=== PATIENT | female | born 1995 ===

== ENCOUNTER 2021-01-07 17:08 | Emergency (ER) | payer SELFPAY ==
[2021-01-07 17:54] VITALS: BP 144/63
--- NOTE | 2021-01-07 17:56 | Emergency Department Report ---
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 Patient went to a primary care clinic and was diagnosed with stomatitis and given Keflex and ibuprofen and she had basic labs performed duri ng a visit for a physical. She received her labs back and was advised that her potassium was 8.8. She presents emergency room to have repeat labs drawn. She has no symptoms at all currently. She denies any chest pain, shortness of breath, palpitations, numbness, weakness, muscle cramps. Based on her lab work drawn from her primary care visit, her renal function was normal at that time. She denies any past medical history or allergies to medications. - Related Data Allergies Allergy/AdvReac Type Severity Reaction Status Date / Time No Known Allergies Allergy Unverified 01/07/21 17:30 ED Review of Systems ROS: Stated complaint: ABNORMAL LABS Other details as noted in HPI Comment: All other systems reviewed and negative ED Past Medical Hx - Past Medical History Previous Medical History?: No - Surgical History Past Surgical History?: No - Social History Smoking Status: Never Smoker Substance Use Type: None ED Physical Exam - General Limitations: No Limitations General appearance: alert, in no apparent distress - Head Head exam: Present: atraumatic, normocephalic - Eye Eye exam: Present: normal appearance - ENT ENT exam: Present: normal orophraynx, mucous membranes moist - Neurological Exam Neurological exam: Present: alert, oriented X3 - Psychiatric Psychiatric exam: Present: normal affect, normal mood - Skin Skin exam: Present: warm, dry, intact ED Course Vital Signs 01/07/21 17:31 Temperature 98.1 F Pulse Rate 78 Respiratory 17 Rate Blood Pressure 144/63 O2 Sat by Pulse 99 Oximetry ED Medical Decision Making - Lab Data Result diagrams: 01/07/21 17:44 01/07/21 17:44 - Medical Decision Making [place]ian interpretation by Nigel security messenger Patient is a 25-year-old female presents emergency room to have her labs rechecked. Patient went to a primary care clinic and was diagnosed with stomat itis and given Keflex and ibuprofen and she had basic labs performed during a visit for a physical. She received her labs back and was advised that her potassium was 8.8. She presents emergency room to have repeat labs drawn. She has no symptoms at all currently. She denies any chest pain, shortness of breath, palpitations, numbness, weakness, muscle cramps. Based on her lab work drawn from her primary care visit, her renal function was normal at that time. She denies any past medical history or allergies to medications. Vitals are normal. No abnormality on physical examination as documented in chart. Labs repeated and are normal. Discussed results with patient. Previous lab result most likely laboratory error. Please follow-up with your primary care doctor. Return to emergency room for any new or worsening symptoms. Critical care attestation.: If time is entered above; I have spent that time in minutes in the direct care of this critically ill patient, excluding procedure time. ED Disposition Clinical Impression: Laboratory test Disposition: 01 HOME / SELF CARE / HOMELESS Is pt being admited?: No Does the pt Need Aspirin: No Condition: Stable Additional Instructions: Please follow-up with your primary care doctor. Return to emergency room for any new or worsening symptoms. Referrals: your, primary care doctor [Other] - 2-3 Days Forms: Work/School Release Form(ED) Time of Disposition: 18:26 Print Language: JAMAICAN
[2021-01-07 18:13] LABS: Basophils % (Auto) 0.3 % (0.0-1.8); Eosinophils # (Auto) 0.1 K/mm3 (0.0-0.4); Eosinophils % (Auto) 0.7 % (0.0-4.3); Hematocrit 40.7 % (30.3-42.9); Hemoglobin 13.8 gm/dl (10.1-14.3); Lymphocytes # (Auto) 2.2 K/mm3 (1.2-5.4); Lymphocytes % (Auto) 23.8 % (13.4-35.0); Mean Corpuscular HGB Conc 34 % (30-34); Mean Corpuscular Volume 88 fl (79-97); Monocytes # (Auto) 0.6 K/mm3 (0.0-0.8); Monocytes % (Auto) 6.3 % (0.0-7.3); Platelet Count 213 K/mm3 (140-440); Red Blood Count 4.64 M/mm3 (3.65-5.03)
[2021-01-07 18:19] LABS: Alanine Aminotransferase 17 units/L (7-56); Albumin 4.5 g/dL (3.9-5); Blood Urea Nitrogen 13 mg/dL (7-17); Calcium 9.3 mg/dL (8.4-10.2); Hemolysis Index 6
[2021-01-07 18:21] LABS: BUN/Creatinine Ratio 22
== END 2021-01-07 20:41 | disposition home or self-care (01) ==
LOC: ED 17:08
DX: Z01.89 Encounter for other specified special examinations (principal)
CPT/HCPCS: 36415; 80053; 85025